=== PATIENT | male | born 1975 | race African-American/Black ===

== ENCOUNTER 2017-09-05 17:40 | Inpatient (IN) ==
[2017-09-05] MEDS ORDERED: SODIUM CHLORIDE 0.9% 1,000 ML IV STA (18:04)
[2017-09-05] MEDS ORDERED: ONDANSETRON 4 MG/2 ML VIAL IV STA (18:04)
[2017-09-05] MEDS ORDERED: DILTIAZEM 50 MG/10 ML VIAL IV STA (18:11)
[2017-09-05] MEDS ORDERED: levETIRAcetam 500 MG/5 ML VIAL IV ONE (18:15)
[2017-09-05] MEDS ORDERED: ONDANSETRON 4 MG/2 ML VIAL ONE (18:17)
[2017-09-05] MEDS ORDERED: DILTIAZEM 50 MG/10 ML VIAL IV ONE ×2 (18:18→22:51)
[2017-09-05 18:25] LABS: Acetaminophen < 2.0 UG/ML (10-30); Salicylate < 2.8 MG/DL (2.8-20)
[2017-09-05 18:29] LABS: Alanine Aminotransferase 24 U/L (16-61); Albumin 3.9 G/DL (3.4-5.0); Alkaline Phosphatase 63 U/L (45-117); Aspartate Amino Transferase 28 U/L (0-37); Blood Urea Nitrogen 14 MG/DL (7-18); Calcium 9.3 MG/DL (8.5-10.1); Glucose 97 MG/DL (74-106); Osmolality,Calculated 279.4 MOS/KG (273-304); Potassium 4.2 MMOL/L (3.5-5.1); Sodium 140 MMOL/L (136-145); Total Protein 7.4 G/DL (6.4-8.3); Troponin I Only < 0.015 NG/ML (0.00-0.045)
[2017-09-05 18:51] LABS: Basophils % 0.3 % (0.0-0.8); Eosinophils # 0.1 10*3/uL (0.0-0.87); Eosinophils % 1.5 % (0.00-10.9); Hematocrit 45.5 VOL% (42.0-52.0); Hemoglobin 15.3 GM/DL (14.0-18.0); Immature Granulocytes % 0.3 %; Immature Granulocytes Absolute 0.02 #; Lymphocytes % 27.4 % (21.2-54.2); Mean Corpuscular HGB Conc 33.6 GM/DL (32-36); Mean Corpuscular Hemoglobin 30 PG (27-34); Mean Platelet Volume 11.3 FL (9.6-12.0); Monocytes # 0.6 10*3/uL (0.11-0.8); Monocytes % 8.7 % (1.7-12.7); Neutrophils # 4.6 10*3/uL (1.4-7.4); Neutrophils % 61.8 % (38.7-73.9); Platelet Count 188 T/CUMM (130-400); Red Blood Count 5.17 MC/CUMM (3.8-5.5); Red Cell Distribution Width 14.9 % (9.3-17.3); White Blood Count 7.4 T/CUMM (4-12)
[2017-09-05] MEDS ORDERED: LEVOFLOXACIN INJ 750 MG in PREMIX 1 EACH IV STA (19:13)
[2017-09-05] MEDS ORDERED: methylPREDNISolone SOD SUC 125 MG/2 ML VIAL IV STA (19:13)
[2017-09-05 19:26] LABS: Apearance,Urine CLEAR (Clear); Bilirubin,Urine Negative (Negative); Blood, Urine Negative (Negative); Glucose,Urine (UA) Negative (Negative); Ketones,Urine Negative (Negative); Mucus,Urine Occasional /LPF (Occasional); Nitrite,Urine Negative (Negative); Protein,Urine Negative; Urine Color Yellow (Yellow); Urine Specific Gravity 1.012 (1.001-1.035); Urine Urobilinogen < 2.0 EU/DL (0.2-1.0); WBC,Urine <1 /HPF (0-6)
[2017-09-05 19:34] LABS: Barbiturates Screen,Urine Negative (Negative); Benzodiazepines Screen,Urine Negative (Negative); Cannabinoid Screen,Urine Negative (Negative); Opiate Screen,Urine Negative (Negative); Phencyclidine Screen,Urine Negative (Negative)
[2017-09-05] MEDS ORDERED: LEVOFLOXACIN INJ 150 ML IV ONE (19:47)
[2017-09-05] MEDS ORDERED: methylPREDNISolone SOD SUC 125 MG/2 ML VIAL ONE (19:48)
[2017-09-05] MEDS ORDERED: ALBUTEROL/IPRATROPIUM 3 ML NEB RESP TX PRN (20:28)
[2017-09-05] MEDS ORDERED: NICOTINE 21 MG/24 HR PATCH TRANSDERM PRN (20:28)
[2017-09-05] MEDS ORDERED: ONDANSETRON 4 MG/2 ML VIAL IV PRN (20:28)
[2017-09-05] MEDS ORDERED: ACETAMINOPHEN 325 MG TABLET PO PRN (20:28)
[2017-09-05] MEDS ORDERED: LORazepam 2 MG/1 ML VIAL IV PRN (20:32)
[2017-09-05] MEDS ORDERED: INFLUENZA VIRUS VACCINE 0.5 ML SYRINGE IM ONE (21:30)
[2017-09-05] MEDS: SODIUM CHLORIDE 0.9% 1,000 ML IV SCH (21:50)
[2017-09-05] MEDS: levETIRAcetam INJ 500 MG in SODIUM CHLORIDE 0.9% 50 ML IV SCH (22:23)
[2017-09-05] MEDS: DOCUSATE SODIUM 100 MG CAPSULE PO SCH (22:24)
[2017-09-05] MEDS: ENOXAPARIN 40 MG/0.4 ML SYRINGE SUBCUT SCH (22:24)
[2017-09-06] MEDS ORDERED: DILTIAZEM INJ 100 MG in SODIUM CHLORIDE 0.9% 100 ML IV SCH (00:30)
[2017-09-06] MEDS: ALBUTEROL/IPRATROPIUM 3 ML NEB RESP TX SCH ×4 (01:04→20:00)
[2017-09-06] MEDS: SODIUM CHLORIDE 0.9% 1,000 ML IV SCH ×5 (05:40→21:31)
[2017-09-06 06:01] LABS: Basophils % 0.1 % (0.0-0.8); Hemoglobin 15.9 GM/DL (14.0-18.0); Immature Granulocytes % 0.7 %; Immature Granulocytes Absolute 0.05 #; Lymphocytes # 0.9 10*3/uL (1.4-4.0); Lymphocytes % 11.4 % (21.2-54.2); Mean Corpuscular HGB Conc 33.1 GM/DL (32-36); Mean Corpuscular Hemoglobin 30 PG (27-34); Mean Corpuscular Volume 89.1 FL (87-102); Mean Platelet Volume 11.7 FL (9.6-12.0); Monocytes # 0.1 10*3/uL (0.11-0.8); Monocytes % 1.6 % (1.7-12.7); Neutrophils # 6.4 10*3/uL (1.4-7.4); Neutrophils % 86.2 % (38.7-73.9); Platelet Count 203 T/CUMM (130-400); Red Blood Count 5.39 MC/CUMM (3.8-5.5); Red Cell Distribution Width 14.9 % (9.3-17.3); White Blood Count 7.5 T/CUMM (4-12)
[2017-09-06 06:48] LABS: Blood Urea Nitrogen 13 MG/DL (7-18); Calcium 8.9 MG/DL (8.5-10.1); Glucose 131 MG/DL (74-106); Osmolality,Calculated 282.3 MOS/KG (273-304); Potassium 4.6 MMOL/L (3.5-5.1); Sodium 141 MMOL/L (136-145); Troponin I Only < 0.015 NG/ML (0.00-0.045)
[2017-09-06] MEDS: ASPIRIN 325 MG TABLET PO SCH (08:52)
[2017-09-06] MEDS: DOCUSATE SODIUM 100 MG CAPSULE PO SCH ×2 (08:52→21:23)
[2017-09-06] MEDS: levETIRAcetam INJ 500 MG in SODIUM CHLORIDE 0.9% 50 ML IV SCH (08:52)
[2017-09-06] MEDS: PANTOPRAZOLE 40 MG TABLET PO SCH (08:52)
[2017-09-06 08:58] LABS: Free T4 (Free Thyroxine) 0.96 NG/DL (0.76-1.46); Thyroid Stimulating Hormone 0.341 uIU/ml (0.358-3.74)
[2017-09-06] MEDS: METOPROLOL TARTRATE 25 MG TABLET PO SCH ×2 (09:31→21:23)
[2017-09-06] MEDS: LEVOFLOXACIN INJ 750 MG in PREMIX 1 EACH IV SCH (18:15)
[2017-09-06] MEDS: levETIRAcetam 500 MG TABLET PO SCH (21:23)
[2017-09-06] MEDS: ENOXAPARIN 40 MG/0.4 ML SYRINGE SUBCUT SCH (21:24)
[2017-09-07] MEDS: ALBUTEROL/IPRATROPIUM 3 ML NEB RESP TX SCH ×4 (00:38→19:44)
[2017-09-07] MEDS: SODIUM CHLORIDE 0.9% 1,000 ML IV SCH ×4 (06:01→14:48)
[2017-09-07] MEDS: levETIRAcetam 500 MG TABLET PO SCH ×2 (09:24→21:00)
[2017-09-07] MEDS: METOPROLOL TARTRATE 25 MG TABLET PO SCH ×2 (09:24→21:00)
[2017-09-07] MEDS: DOCUSATE SODIUM 100 MG CAPSULE PO SCH ×2 (09:24→21:00)
[2017-09-07] MEDS: ASPIRIN 325 MG TABLET PO SCH (09:24)
[2017-09-07] MEDS: PANTOPRAZOLE 40 MG TABLET PO SCH (09:25)
[2017-09-07] MEDS: LEVOFLOXACIN INJ 750 MG in PREMIX 1 EACH IV SCH (18:24)
[2017-09-07] MEDS: ENOXAPARIN 40 MG/0.4 ML SYRINGE SUBCUT SCH (21:00)
[2017-09-08] MEDS: ALBUTEROL/IPRATROPIUM 3 ML NEB RESP TX SCH ×2 (00:12→06:49)
[2017-09-08 08:30] VITALS: BP 149/91
[2017-09-08] MEDS: DOCUSATE SODIUM 100 MG CAPSULE PO SCH (09:01)
[2017-09-08] MEDS: levETIRAcetam 500 MG TABLET PO SCH (09:01)
[2017-09-08] MEDS: PANTOPRAZOLE 40 MG TABLET PO SCH (09:01)
[2017-09-08] MEDS: METOPROLOL TARTRATE 25 MG TABLET PO SCH (09:01)
[2017-09-08] MEDS: ASPIRIN 325 MG TABLET PO SCH (09:01)
== END 2017-09-08 11:45 | disposition home or self-care (01) | DRG 896 ==
LOC: EDBD → EDUNIT# → N.ED 17:40 → SUATTDRO 20:19 → N.EDINP 20:19 → N.CC 20:55 → N.TELEN 09-07 17:36
PROVIDERS: ADMIT Internal Medicine Cardiovascular Disease; ATTEND Internal Medicine

== ENCOUNTER 2022-11-29 08:05 | Observation (INO) ==
[2022-11-29 08:40] LABS: Basophils # 0.1 10*3/uL (0.0-0.2); Basophils % 0.6 % (0.0-0.8); Eosinophils # 0.1 10*3/uL (0.0-0.87); Eosinophils % 1.3 % (0.00-10.9); Hematocrit 37.5 VOL% (42.0-52.0); Hemoglobin 11.8 GM/DL (14.0-18.0); Immature Granulocytes % 0.6 %; Immature Granulocytes Absolute 0.05 #; Lymphocytes % 22.8 % (21.2-54.2); Mean Corpuscular HGB Conc 31.5 GM/DL (32-36); Mean Corpuscular Volume 87.2 FL (87-102); Mean Platelet Volume 9.9 FL (9.6-12.0); Monocytes # 0.6 10*3/uL (0.11-0.8); Monocytes % 6.8 % (1.7-12.7); Neutrophils % 67.9 % (38.7-73.9); Platelet Count 348 T/CUMM (130-400); Red Cell Distribution Width 17.5 % (9.3-17.3); White Blood Count 8.69 T/CUMM (4-12)
[2022-11-29] MEDS ORDERED: SODIUM CHLORIDE 0.9% 1,000 ML IV STA (08:40)
[2022-11-29] MEDS ORDERED: ONDANSETRON 4 MG/2 ML VIAL IV STA (08:40)
[2022-11-29 08:57] LABS: Bilirubin,Total 0.8 MG/DL (0.20-1.00); Calcium 8.8 MG/DL (8.5-10.1); Osmolality,Calculated 281.3 MOS/KG (273-304); Potassium 4.5 MMOL/L (3.5-5.1); Total Protein 6.5 G/DL (6.4-8.2)
[2022-11-29] MEDS ORDERED: hydrALAZINE 20 MG/1 ML VIAL IV STA (09:08)
[2022-11-29] MEDS ORDERED: hydrALAZINE 20 MG/1 ML VIAL ONE (09:09)
[2022-11-29] MEDS ORDERED: FUROSEMIDE 40 MG/4 ML VIAL IV STA (10:27)
[2022-11-29 11:21] LABS: Bacteria,Urine Occasional /HPF (Few); RBC,Urine <1 /HPF (0-4); Urine Appearance Clear (Clear); Urine Color Light Yellow (Yellow)
[2022-11-29 11:22] LABS: Bilirubin,Urine Negative (Negative); Blood, Urine Negative (Negative); Glucose,Urine (UA) Negative (Negative); Ketones,Urine Negative (Negative); Nitrite,Urine Negative (Negative); Protein,Urine Negative (Negative); Urine Specific Gravity 1.015 (1.001-1.035); Urine Urobilinogen 0.2 eU/dL (<2.0)
[2022-11-29 11:29] LABS: Barbiturates Screen,Urine Negative (Negative); Benzodiazepines Screen,Urine Negative (Negative); Cannabinoid Screen,Urine Negative (Negative); Opiate Screen,Urine Negative (Negative); Phencyclidine Screen,Urine Negative (Negative)
[2022-11-29] MEDS ORDERED: ONDANSETRON 4 MG/2 ML VIAL IV PRN (13:42)
[2022-11-29] MEDS: cefTRIAXone 1,000 MG in SODIUM CHLORIDE 0.9% 100 ML IV SCH (14:04)
[2022-11-29] MEDS: AZITHROMYCIN INJ 500 MG in SODIUM CHLORIDE 0.9% 250 ML IV SCH (15:20)
[2022-11-29] MEDS: ENOXAPARIN 40 MG/0.4 ML SYRINGE SUBCUT SCH (20:31)
[2022-11-30 06:31] LABS: Calcium 8.5 MG/DL (8.5-10.1); Potassium 4.3 MMOL/L (3.5-5.1)
[2022-11-30] MEDS: MORPHINE 2 MG/1 ML SYRINGE IV PRN (08:13)
[2022-11-30] MEDS: FUROSEMIDE 40 MG/4 ML VIAL IV SCH (08:14)
[2022-11-30] MEDS: PANTOPRAZOLE 40 MG VIAL IV SCH (08:15)
[2022-11-30] MEDS ORDERED: SODIUM PHOSPHATE ENEMA 133 ML BOTTLE RECTAL ONE (10:02)
[2022-11-30] MEDS: cefTRIAXone 1,000 MG in SODIUM CHLORIDE 0.9% 100 ML IV SCH (14:41)
[2022-11-30] MEDS: AZITHROMYCIN INJ 500 MG in SODIUM CHLORIDE 0.9% 250 ML IV SCH (14:43)
[2022-11-30] MEDS: ENOXAPARIN 40 MG/0.4 ML SYRINGE SUBCUT SCH (21:12)
[2022-12-01 05:41] LABS: Basophils # 0.1 10*3/uL (0.0-0.2); Basophils % 0.7 % (0.0-0.8); Eosinophils # 0.2 10*3/uL (0.0-0.87); Hematocrit 39.2 VOL% (42.0-52.0); Hemoglobin 12.4 GM/DL (14.0-18.0); Immature Granulocytes % 0.5 %; Immature Granulocytes Absolute 0.04 #; Lymphocytes # 2.7 10*3/uL (1.4-4.0); Lymphocytes % 31.9 % (21.2-54.2); Mean Corpuscular HGB Conc 31.6 GM/DL (32-36); Mean Corpuscular Volume 87.5 FL (87-102); Mean Platelet Volume 11.2 FL (9.6-12.0); Monocytes # 0.5 10*3/uL (0.11-0.8); Monocytes % 6.4 % (1.7-12.7); Neutrophils % 58.5 % (38.7-73.9); Platelet Count 312 T/CUMM (130-400); Red Blood Count 4.48 MC/CUMM (3.8-5.5); Red Cell Distribution Width 17.7 % (9.3-17.3); White Blood Count 8.43 T/CUMM (4-12)
[2022-12-01 05:58] LABS: Calcium 8.8 MG/DL (8.5-10.1); Osmolality,Calculated 281.3 MOS/KG (273-304); Potassium 3.7 MMOL/L (3.5-5.1)
[2022-12-01] MEDS: FUROSEMIDE 40 MG/4 ML VIAL IV SCH (08:09)
[2022-12-01] MEDS: MORPHINE 2 MG/1 ML SYRINGE IV PRN (08:10)
[2022-12-01] MEDS: PANTOPRAZOLE 40 MG VIAL IV SCH (08:10)
[2022-12-01] MEDS ORDERED: NICOTINE 14 MG/24 HR PATCH TRANSDERM SCH (09:00)
[2022-12-01] MEDS ORDERED: amLODIPine 5 MG TABLET PO SCH (09:00)
[2022-12-01 11:42] VITALS: BP 116/74
[2022-12-01] MEDS: cefTRIAXone 1,000 MG in SODIUM CHLORIDE 0.9% 100 ML IV SCH (14:26)
[2022-12-01] MEDS: AZITHROMYCIN INJ 500 MG in SODIUM CHLORIDE 0.9% 250 ML IV SCH (14:26)
== END 2022-12-01 14:32 | disposition home or self-care (01) ==
LOC: N.ED 08:05 → N.EDINP 08:05 → SUATTDRO 13:36 → N.2W 14:39
PROVIDERS: ADMIT Internal Medicine; ATTEND Internal Medicine